=== PATIENT | male | born 1985 | race Hispanic/Latino ===

== ENCOUNTER 2018-12-11 21:34 | Inpatient (IN) | payer SELFPAY ==
[~2018-12-11] VITALS: Ht 167.6 cm; Wt 64.5 kg
[2018-12-11 22:09] LABS: BASOPHILS % (AUTO) 0.3 % (0.0-5.0); HEMATOCRIT 43.8 % (42-54); LYMPHOCYTES % (AUTO) 6.6 % (21.0-51.0); MEAN CORPUSCULAR HEMOGLOBIN 30.4 pg (27.0-33.0); MEAN CORPUSCULAR HGB CONC 33.7 g/dL (32.0-36.0); MEAN CORPUSCULAR VOLUME 90.1 fL (79-99); MONOCYTES % (AUTO) 6.7 % (3.0-13.0); NEUTROPHILS % (AUTO) 85.4 % (40.0-77.0); PLATELET COUNT (AUTO) 240 K/uL (130-400); RED BLOOD CELL COUNT(AUTO) 4.86 MIL/uL (4.50-6.20); RED CELL DISTRIBUTION WIDTH 13.6 % (11.0-15.5); WHITE BLOOD COUNT (AUTO) 17.2 K/uL (4.8-10.8)
[2018-12-11 22:11] LABS: CREATININE 0.8 mg/dL (0.5-1.5); POTASSIUM 3.3 mmol/L (3.5-5.1)
[2018-12-11 22:21] LABS: ALBUMIN 4.5 g/dL (3.5-5.0); BILIRUBIN,TOTAL 0.6 mg/dL (0.2-1.0)
[2018-12-11] MEDS ORDERED: SODIUM CHLORIDE 0.9% 1000ML 1,000 ML IV ONE ×2 (22:41→23:25)
[2018-12-11] MEDS ORDERED: LEVOFLOXACIN 500 MG/D5W 100 ML 100 ML ONE (23:15)
[2018-12-11] MEDS ORDERED: CEFTRIAXONE SODIUM 1 GM ONE (23:15)
[2018-12-12] MEDS ORDERED: MORPHINE SULFATE 2 MG/ML 1ML SYG IV PRN (04:00)
[2018-12-12] MEDS ORDERED: MORPHINE SULFATE 4 MG/1ML SYG IV PRN (04:00)
[2018-12-12 06:22] LABS: APPEARANCE,URINE Clear (CLEAR); BILIRUBIN,URINE Negative (NEGATIVE); COLOR,URINE Yellow (YELLOW); GLUCOSE, URINE (UA) Negative (NEGATIVE); KETONES,URINE Negative (NEGATIVE); LEUKOCYTE ESTERASE ,URINE Trace (NEGATIVE); NITRATE,URINE Negative (NEGATIVE); OCCULT BLOOD,URINE Large (NEGATIVE); PH,URINE 5.5 (5.0-8.0); PROTEIN,URINE Negative (NEGATIVE); UROBILINOGEN,URINE 0.2 mg/dL (0.2-1.0)
[2018-12-12 06:29] LABS: BACTERIA,URINE Few /HPF (None Seen)
[2018-12-12 06:30] VITALS: BP 132/80
[2018-12-12 06:30] LABS: AMPHET/METH SCREEN,URINE NEGATIVE (NEGATIVE); BARBITURATE SCREEN, URINE NEGATIVE (NEGATIVE); BENZODIAZEPINES SCREEN,URINE NEGATIVE (NEGATIVE); CANNABINOID SCREEN,URINE POSITIVE (NEGATIVE); COCAINE SCREEN,URINE NEGATIVE (NEGATIVE); OPIATE SCREEN,URINE NEGATIVE (NEGATIVE); PHENCYCLIDINE SCREEN,URINE NEGATIVE (NEGATIVE)
[2018-12-12] MEDS: SODIUM CHLORIDE 0.9% 1000ML 1,000 ML IV SCH ×3 (06:34→21:35)
[2018-12-12] MEDS: METHYLPREDNISOLONE SOD SUCC 40MG/ML 1ML IVP SCH ×3 (06:34→21:36)
--- NOTE | 2018-12-12 06:55 | NUR ---
ADMISSION RECEIVED REPORT FROM ER, PATIENT COMING FROM ER , PATIENT CAME VIA STRETCHER NO S/S OF DISTRESS NOTED, PATIENT TRANSFERRED TO BED WITH X1 ASSIST.
[2018-12-12] MEDS ORDERED: ONDANSETRON HCL 4 MG/2 ML VIAL IVP PRN (07:00)
[2018-12-12] MEDS ORDERED: GUAIFENESIN-DM 200/20 MG 10 ML PO PRN (07:00)
[2018-12-12] MEDS ORDERED: IPRATROPIUM/ALBUTEROL SULFATE 3 ML SOLUTION IH PRN (07:00)
[2018-12-12] MEDS ORDERED: ACETAMINOPHEN 325 MG TAB PO PRN (07:00)
[2018-12-12] MEDS ORDERED: ZOLPIDEM TARTRATE 5 MG TAB PO PRN (07:00)
[2018-12-12 07:47] LABS: CREATININE 0.7 mg/dL (0.5-1.5); POTASSIUM 3.6 mmol/L (3.5-5.1)
[2018-12-12 08:00] VITALS: BP 124/77
[2018-12-12 08:29] LABS: BASOPHILS % (AUTO) 0.5 % (0.0-5.0); EOSINOPHILS % (AUTO) 0.4 % (0.0-8.0); HEMATOCRIT 44.4 % (42-54); MEAN CORPUSCULAR HEMOGLOBIN 30.7 pg (27.0-33.0); MEAN CORPUSCULAR HGB CONC 33.2 g/dL (32.0-36.0); MEAN CORPUSCULAR VOLUME 92.2 fL (79-99); MONOCYTES % (AUTO) 7.3 % (3.0-13.0); NEUTROPHILS % (AUTO) 85.8 % (40.0-77.0); PLATELET COUNT (AUTO) 227 K/uL (130-400); RED BLOOD CELL COUNT(AUTO) 4.81 MIL/uL (4.50-6.20); RED CELL DISTRIBUTION WIDTH 14.1 % (11.0-15.5); WHITE BLOOD COUNT (AUTO) 16.3 K/uL (4.8-10.8)
[2018-12-12 09:03] LABS: ALBUMIN 3.9 g/dL (3.5-5.0); BILIRUBIN,TOTAL 0.6 mg/dL (0.2-1.0); CREATININE 0.7 mg/dL (0.5-1.5); POTASSIUM 3.5 mmol/L (3.5-5.1); TOTAL PROTEIN, SERUM 7.4 g/dL (6.0-8.3)
[2018-12-12] MEDS: BENZONATATE 100 MG CAPSULE PO SCH ×3 (09:27→21:34)
[2018-12-12] MEDS: ENOXAPARIN SODIUM 30 MG/0.3 ML SQ SCH (09:27)
[2018-12-12] MEDS: FAMOTIDINE/PF 20 MG/2 ML VIAL IV SCH ×2 (09:27→21:56)
[2018-12-12] MEDS ORDERED: SODIUM CHLORIDE 3% FOR INHALATION 4 ML/AMP VIAL.NEB IH ONE ×2 (09:53→19:40)
[2018-12-12 12:05] VITALS: BP 108/72
--- NOTE | 2018-12-12 13:22 | NUR ---
[facility] CM met with pt discussed dc plans. Pt is semi-independent prior to admission, lives at home with mother. Pt has a cane. Denies any other equipments/services. Pt feels safe to go back home, self pay, [facility] assisting, states sees Dr Mendez. Given [employer] packet. DC plan to home once stable. CM to cont to follow up. Addendum: 12/12/18 at 1325 by DELILAH MORRIS LVN CM Amended: Links added.
--- NOTE | 2018-12-12 13:33 | NUR ---
Nutrition intervention: Nutrition notification for choking with water, H/O MS. At time of RD visit pt with active diet therapy and no choking/coughing reported. Pt drinking water, no choking concerns from pt's RN-Kristen. Pt with plans to be assessed by [employer] [facility]. Recommendations: Continue monitoring PO intake and tolerance. Bedside evaluation by [employer] [facility]- follow texture recommendations. Appropriate diet therapy: Regular Diet. RD to continue monitoring pt's nutritional status for continued intervention. Addendum: 12/12/18 at [address] RD Amended: Links added.
[2018-12-12] MEDS ORDERED: IOHEXOL 350 MG/ML 100ML INFUS..BTL IV ONE (14:06)
[2018-12-12 16:08] VITALS: BP 124/73
--- NOTE | 2018-12-12 18:50 | NUR ---
DR. FELDER VISITED WITH PATIENT. POC DISCUSSED. NEW ORDERS RECEIVED AND CARRIED OUT.
[2018-12-12 19:58] VITALS: BP 120/75
[2018-12-12] MEDS: LEVOFLOXACIN 750 MG TABLET PO SCH (21:33)
[2018-12-12] MEDS: TRAZODONE HCL 100 MG TABLET PO SCH (21:33)
[2018-12-12 23:44] VITALS: BP 96/53
--- NOTE | 2018-12-13 03:31 | NUR ---
PATIENT NOTED OOB AT DOOR OF ROOM, AWAKE AND ALERT TO NAME ONLY. REORIENTED PATIENT TO TIME AND PLACE AND ASSISTED BACK TO BED. PATIENT ALSO NOTED TO HAVE HAD BM IN BED AT THIS TIME. TOTAL CARE RENDERED. HEAD TO TOE ASSESSMENT DONE. PATIENT THEN STATES "BEING DISABLED SUCKS, I AM SO DEPRESSED THAT I AM A GROWN ASS MAN WHO STILL POOPS IN BED AND CANNOT DO FOR MYSELF." REDIRECTED THE PATIENT TO VOICE CONCERNS WITH LATER TODAY. NURSE WILL LET MD KNOW IN AM. IV NOTED TO BE PULLED OUT BY PATIENT. PATIENT HAS ANOTHER IV SITE AT THIS TIME. NS INFUSING AT 100 ML/HR. NO SIGNS OF DISTRESS NOTED. HOB ELEVATED. BED ALARM ON. SIDE RAILS UP X2. CALL LIGHT WITHIN REACH. WILL CONTINUE TO BE OBSERVED. Addendum: 12/13/18 at 0337 by PILI SANDERSON RN RN Amended: Links added.
[2018-12-13 03:50] VITALS: BP 121/72
[2018-12-13 06:08] LABS: BASOPHILS % (AUTO) 0.1 % (0.0-5.0); HEMATOCRIT 38.5 % (42-54); LYMPHOCYTES % (AUTO) 3.5 % (21.0-51.0); MEAN CORPUSCULAR HEMOGLOBIN 30.4 pg (27.0-33.0); MEAN CORPUSCULAR HGB CONC 33.5 g/dL (32.0-36.0); MEAN CORPUSCULAR VOLUME 90.6 fL (79-99); MONOCYTES % (AUTO) 3.3 % (3.0-13.0); NEUTROPHILS % (AUTO) 93.1 % (40.0-77.0); PLATELET COUNT (AUTO) 211 K/uL (130-400); RED BLOOD CELL COUNT(AUTO) 4.25 MIL/uL (4.50-6.20); RED CELL DISTRIBUTION WIDTH 13.7 % (11.0-15.5); WHITE BLOOD COUNT (AUTO) 17.4 K/uL (4.8-10.8)
[2018-12-13] MEDS: METHYLPREDNISOLONE SOD SUCC 40MG/ML 1ML IVP SCH ×3 (06:25→20:27)
[2018-12-13 08:00] VITALS: BP 111/70
[2018-12-13] MEDS: FAMOTIDINE/PF 20 MG/2 ML VIAL IV SCH ×2 (08:27→20:25)
[2018-12-13] MEDS: VENLAFAXINE HCL XR 37.5 MG CAP PO SCH (08:27)
[2018-12-13] MEDS: BENZONATATE 100 MG CAPSULE PO SCH ×3 (08:28→20:25)
[2018-12-13] MEDS: ENOXAPARIN SODIUM 30 MG/0.3 ML SQ SCH (08:28)
[2018-12-13] MEDS: SODIUM CHLORIDE 0.9% 1000ML 1,000 ML IV SCH ×2 (09:58→20:31)
[2018-12-13 11:00] VITALS: BP 114/68
--- NOTE | 2018-12-13 11:15 | NUR ---
DYSPHAGIA EVAL COMPLETED. -S/S OF ASPIRATION. RECOMMEND REGULAR, THIN LIQUIDS; PILLS WHOLE WITH LIQUIDS. Addendum: 12/13/18 at 1258 by JOSS ARDON, [facility] ST Amended: Links added.
[2018-12-13] MEDS ORDERED: GADODIAMIDE 10 MMOL/20 ML VIAL IV ONE (12:20)
[2018-12-13 16:00] VITALS: BP 130/55
[2018-12-13 19:31] VITALS: BP 128/77
[2018-12-13] MEDS: LEVOFLOXACIN 750 MG TABLET PO SCH (20:25)
[2018-12-13] MEDS: TRAZODONE HCL 100 MG TABLET PO SCH (20:25)
[2018-12-13 23:27] VITALS: BP 121/75
[2018-12-14] MEDS ORDERED: TAMS-1 PO (01:46)
[2018-12-14 03:51] VITALS: BP 114/75
[2018-12-14 05:07] LABS: BASOPHILS % (AUTO) 0.1 % (0.0-5.0); HEMATOCRIT 37.3 % (42-54); LYMPHOCYTES % (AUTO) 3.5 % (21.0-51.0); MEAN CORPUSCULAR HEMOGLOBIN 30.9 pg (27.0-33.0); MEAN CORPUSCULAR VOLUME 91.1 fL (79-99); MONOCYTES % (AUTO) 3.3 % (3.0-13.0); NEUTROPHILS % (AUTO) 93.1 % (40.0-77.0); PLATELET COUNT (AUTO) 205 K/uL (130-400); RED CELL DISTRIBUTION WIDTH 13.8 % (11.0-15.5); WHITE BLOOD COUNT (AUTO) 15.2 K/uL (4.8-10.8)
[2018-12-14 05:18] LABS: ALBUMIN 3.4 g/dL (3.5-5.0); BILIRUBIN,TOTAL 0.4 mg/dL (0.2-1.0); CREATININE 0.7 mg/dL (0.5-1.5); TOTAL PROTEIN, SERUM 6.6 g/dL (6.0-8.3)
[2018-12-14 07:30] VITALS: BP 114/81
[2018-12-14] MEDS: SODIUM CHLORIDE 0.9% 1000ML 1,000 ML IV SCH (10:42)
[2018-12-14] MEDS: VENLAFAXINE HCL XR 37.5 MG CAP PO SCH (10:43)
[2018-12-14] MEDS: ENOXAPARIN SODIUM 30 MG/0.3 ML SQ SCH (10:43)
[2018-12-14] MEDS: FAMOTIDINE/PF 20 MG/2 ML VIAL IV SCH (10:43)
[2018-12-14] MEDS: BENZONATATE 100 MG CAPSULE PO SCH ×2 (10:43→14:06)
[2018-12-14 11:00] VITALS: BP 132/76
--- NOTE | 2018-12-14 12:45 | NUR ---
PAGED PAGESanjay BRUCE AT [address] MARQUEZ REFERENCE DISCHARGING PATIENT. CALLED PAGER [phone]
--- NOTE | 2018-12-14 13:49 | NUR ---
DC GIRON DC GIRON, EMPTIED 1000ML OF PALE YELLOW URINE FROM GIRON BAG. PATIENT TOLERATED PROCEDURE WITHOUT INCIDENT. PATIENT EXPECTED TO VOID BY 1945 HOURS.
[2018-12-14 16:00] VITALS: BP 127/69
--- NOTE | 2018-12-14 17:00 | NUR ---
2ND PAGE CALLED OFFICE OF DR. BRUCE, NO ANSWER, NOT TAKING CALLS, LEAVE MESSAGE. PAGED A SECOND TIME STILL WAITING ON RESPONSE.
[2018-12-14] MEDS ORDERED: VENL37.570 PO (18:08)
[2018-12-14] MEDS ORDERED: TRAZ-221 PO (18:08)
--- NOTE | 2018-12-14 19:01 | NUR ---
PATIENT DISCHARGE PATIENT DISCHARGED, IV DISCONTINUED, CATHLON INTACT, BLEEDING CONTROLLED, PATIENT TOLERATED WITHOUT INCIDENT.
== END 2018-12-14 19:10 | disposition home or self-care (01) | DRG 872 ==
LOC: EDH 21:34 → EDHIP 21:35 → 3DH 12-12 04:50
PROVIDERS: ADMIT Internal Medicine; ATTEND Internal Medicine
DX: A41.9 Sepsis, unspecified organism (principal); F32.2 Major depressive disorder, single episode, severe without psychotic features; N39.0 Urinary tract infection, site not specified; E87.6 Hypokalemia; F10.10 Alcohol abuse, uncomplicated; F14.10 Cocaine abuse, uncomplicated; F12.90 Cannabis use, unspecified, uncomplicated; F17.200 Nicotine dependence, unspecified, uncomplicated; F60.7 Dependent personality disorder; G35 Multiple sclerosis; I10 Essential (primary) hypertension; Z79.899 Other long term (current) drug therapy; Z91.14 Patient's other noncompliance with medication regimen; Z86.73 Personal history of transient ischemic attack (TIA), and cerebral infarction without residual deficits
CPT/HCPCS: 36415; 70553; 71045; 71275; 80048; 80053; 80305; 81001; 82550; 83605; 84484; 85025; 85378; 87040; 87088; 87804; 92610; 93005; 94640; 94664; 99291; A9579; G0378; J0696; J1650; J1956; J2920; J3490; J7030; Q9967